=== PATIENT | female | born 1990 | race African-American/Black ===

== ENCOUNTER 2018-04-21 14:55 | Emergency (ER) | payer MEDICAID ==
[~2018-04-21] VITALS: Ht 167.6 cm; Wt 59.0 kg
--- NOTE | 2018-04-21 16:13 | Emergency Room Report ---
History of Present Illness General Chief Complaint: Behavioral Complaint Source: Patient Present Illness Allergies: Coded Allergies: No Known Allergies (Unverified , 04/21/18) Patient History Last Menstrual Period: 04/20/18 Nursing Documentation-[facility] Past Medical History: No Stated History Physical Exam Vital Signs Date Time Temp Pulse Resp B/P (MAP) Pulse Ox O2 Delivery O2 Flow Rate FiO2 04/21/18 14:58 98.1 105 18 144/86 98 Room Air Medical Decision Making PA Attestation Dr. Bowen is my supervising Physician whom patient management has been discussed with. Diagnostic Impression: Primary Impression: Depressed affect Last Vital Signs Date Time Temp Pulse Resp B/P (MAP) Pulse Ox O2 Delivery O2 Flow Rate FiO2 04/21/18 14:58 98.1 105 18 144/86 98 Room Air Disposition: HOME, SELF-CARE Condition: Stable Scripts No Active Prescriptions or Reported Meds Referrals: [facility] Departure Forms: Return to Work Return to Work Date: Apr 24, 2018 Work Restrictions: None Other Restrictions: May return Sooner if Symptoms have resolved. Return to Full Activity: Apr 24, 2018 Additional Instructions: Take medications as directed. Follow up with a Mental Health Specialist/ Psychiatrist in 3 days, even if your symptoms have resolved. --Please review [facility] resource information provided Return sooner to ED if new symptoms occur, or current symptoms become worse. - Please note that this Emergency Department Report was dictated using [employer] captain technology software, occasionally this can lead to erroneous entry secondary to interpretation by the dictation equipment. Kierra Dukes Apr 21, 2018 16:13
[2018-04-21 16:30] VITALS: BP 135/60
[2018-04-21 16:47] VITALS: BP 130/67
== END 2018-04-21 16:49 | disposition home or self-care (01) ==
LOC: EMR 15:50
DX: F32.9 Major depressive disorder, single episode, unspecified (principal)
CPT/HCPCS: 99282